=== PATIENT | female | born 1985 | race Caucasian/White ===

== ENCOUNTER → 2017-11-11 | Outpatient (CLI) | payer OTHER ==
[~2017-11-11] MED LIST: ESCI10TA17 PO; PRENTAB26 PO
== END | disposition home or self-care (01) ==
LOC: C.LABSPEC 17:30
PROVIDERS: ATTEND Obstetrics & Gynecology
DX: N76.0 Acute vaginitis (principal)

== ENCOUNTER → 2017-12-06 | Outpatient (CLI) | payer OTHER | END | disposition home or self-care (01) | LOC: C.PAPS 11:16 | PROVIDERS: ATTEND Obstetrics & Gynecology | DX: Z01.419 Encounter for gynecological examination (general) (routine) without abnormal findings (principal) ==

== ENCOUNTER 2023-04-11 03:30 | Inpatient (IN) ==
[2023-04-11] MEDS ORDERED: OXYTOCIN 30 UNITS/500 ML BAG IV PRN ×2 (03:57→05:28)
[2023-04-11] MEDS ORDERED: LIDOCAINE 1% LOCAL 20 ML VIAL INFIL PRN (03:57)
[2023-04-11] MEDS ORDERED: LACTATED RINGER'S 1,000 ML IV PRN (03:57)
--- NOTE | 2023-04-11 04:21 | History & Physical Report ---
Date of Service April 11, 2023 Assessment & Plan (1) GDM (gestational diabetes mellitus): (2) Supervision of elderly multigravida: (3) with 39 completed weeks gestation: Plan Patient presents in active labor. Being treated as GDM because declined to test. Last us shows efw 88&, AC 97%. Hx of shoulder dystocia with last delivery 7 years ago. fetus is category one. anticipate . Will be vigilent for dystocia. Desires unmedicated labor. arom if desires/indicated. Admission and Anticipated Discharge Date Admission Date: April 11, 2023 History of Present Illness Chief Complaint: contractions Primary Care Provider: Les Webb MD Patient is a 38yowf with iup at39 11/24 who calls complaining of pressure and contractions. Presented to labor and delivery and found to be in active labor. complicated by GDM. US 04/02 shows AC 97%, efw 88%. Last delivery was complicated by a should dystocia for a 8#5oz baby. That baby had spina bifida. and Delivery Plans AMA *Weekly NST's @ 36wks G2 shoulder dystocia G1 mild open spina bifida GDM-Declines GTT *Dietary referral *Growth US monthly IOL 04/16/23 OB Labs: Blood Type O Positive 09/09/22 Antibody Screen NEGATIVE 09/09/22 Hemoglobin 11.6 g/dl (12.0-16.0) L 01/21/23 Hematocrit 33.0 % (37.0-47.0) L 01/21/23 Mean Corpuscular Volume 89.9 fL (80.0-100.0) 09/09/22 Platelet Count 302 K/uL (130-400) 09/09/22 Rubella IgG Antibody Immune (Immune) 09/09/22 Rapid Plasma Reagin Nonreactive (Nonreactive) 09/09/22 Hepatitis B Surface Antigen. NON-REACTIVE (NON-REACTIVE) 09/09/22 Hepatitis C Antibody (EIA) NON-REACTIVE (NON-REACTIVE) 09/09/22 HIV (1&2) Ag and Ab Confirmation NON-REACTIVE (NON-REACTIVE) 09/09/22 Glucose 1 Hour 50 gm Load 97 mg/dl (70-130) 10/29/22 Maternal Serum Alpha Fetoprotein 36.2 ng/mL 10/29/22 OB Optional Labs: Chlamydia trachomatis RNA Not Detected (NotDetected) 09/09/22 Neisseria gonorrhoeae RNA Not Detected (NotDetected) 09/09/22 Thyroid Stimulating Hormone (TSH) 2.05 mIU/L 08/25/21 Alpha Fetoprotein Triple Screen SEE NOTE 10/29/22 low risk panorama neg afp gbs neg Allergies Allergy/AdvReac Type Severity Reaction Status Date / Time peanut Allergy Intermediate Hives Verified 04/08/23 10:40 terbinafine Allergy Intermediate HIVES Verified 04/08/23 10:40 monosodium glutamate Allergy Mild GI SYMPTOMS Verified 04/08/23 10:40 nut - unspecified Allergy Mild GI SYMPTOMS Verified 04/08/23 10:40 Egg Derived Allergy Unknown GI SYMPTOMS Verified 04/08/23 10:40 Home Medications Medication Instructions Recorded Confirmed Type prenat.vits,ac,lsc-vjpe-ehwaa 1 tab PO DAILY 12/12/20 04/11/23 History Lactobacillus 1 cap PO DAILY 04/15/21 04/11/23 History acidophilus-Bifidobac.animalis 31 billion cell capsule triamcinolone acetonide 0.025 % 1 applic topical DAILY PRN Itching 04/15/21 04/11/23 History topical cream #1 g bupropion HCl 100 mg tablet 150 mg PO DAILY 04/30/21 04/11/23 History magnesium oxide 400 mg PO DAILY 08/27/21 04/11/23 History fluoxetine 10 mg capsule 5 mg PO DAILY 12/08/21 04/11/23 History levalbuterol tartrate 45 2 inh inhalation Q6H #15 grams 12/25/21 04/11/23 Rx mcg/actuation aerosol inhaler pyridoxine (vitamin B6) 25 mg 25 mg PO BID 09/04/22 04/11/23 History tablet fluticasone 250 mcg-salmeterol 50 1 inh inhalation BID PRN Allergic 11/23/22 04/11/23 History mcg/dose blistr powdr for Symptoms inhalation (Advair Diskus) acetone (urine) test (Ketone Urine #50 ea 02/05/23 04/08/23 Rx Test strips) blood sugar diagnostic (OneTouch #150 ea 02/05/23 04/08/23 Rx Verio test strips) blood-glucose meter (OneTouch #1 ea 02/05/23 04/08/23 Rx Verio Reflect Meter) lancets 33 gauge (OneTouch Delica #150 ea 02/05/23 04/08/23 Rx Lancets) omega-3 fatty acids 1,000 mg PO DAILY 04/11/23 04/11/23 History vitamin B complex 1 tab PO DAILY 04/11/23 04/11/23 History Patient History Medical History Asthma COVID-19 Irritability Missed Raynauds phenomenon Surgical History S/P tonsillectomy S/P tooth extraction Family History Mother Thyroid disorder Brother Congenital deafness Grandmother (Maternal) Colon cancer Denies family history of Ovarian cancer Breast cancer Social History Smoking Status: Never smoker Second Hand Exposure: No; Do You Dip or Chew Tobacco: No; Hx Alcohol Use: No Hx Substance Use: No Preferred Language: Italian Communication Ability: Effective Visual Impairment: No Limitations Hearing Ability: Normal Parking Lot Attendant And Cashier Required: No Beliefs That Will Affect Care: None marital status: marital status details: Omar (41) [phone] Current Living Situation: Spouse and Family Current Living Situation Comment: lives with spouse and children, no pets current occupational status: other 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 Date GA wks Lbr Lgth wt Sex Type del Anes Place Del Prov ? Comment 01/13/13 5 Aborted-Spontaneous 10/12/13 38 5lb 10oz M None [facility] Dr. Milena Desouza IUGR 06/03/15 40 8lb 5oz. F None [facility] Dr. Alec Desouza Shoulder dystocia, mild spina bifida Physical Exam Constitutional: WD/WN, vitals as above Psychiatric: A+Ox3, euthymic affect Genitourinary: cx--7-8 with a bulging bag toco--q2-4 min efm--130s wtih mod variability, accels present, no decels Results & Data Vital Signs (Past 12 Hours) Vital Signs Temp Pulse Resp BP 04/11/23 04:07 87 147/72 H 04/11/23 04:01 36.5 C 87 18 147/72 H Coding Level of Care Code None Diagnoses GDM (gestational diabetes mellitus) O24.419 Supervision of elderly multigravida O09.529 with 39 completed weeks gestation Z3A.39
[2023-04-11 04:36] LABS: Hemoglobin 12.7 g/dl (12.0-16.0); Mean Corpuscular Hemoglobin 31.4 pg (25.0-34.0); Mean Corpuscular Hgb Conc 35.3 g/dL (32.0-36.0); Mean Corpuscular Volume 88.9 fL (80.0-100.0); Mean Platelet Volume 9.8 fL (9.4-12.4); Platelet Count 241 K/uL (130-400); RDW Coefficient of Variation 13.1 % (11.5-14.5); RDW Standard Deviation 42.7 fL (36.4-46.3); Red Blood Count 4.05 M/uL (4.20-5.40); White Blood Count 8.57 K/ul (4.8-10.8)
[2023-04-11] MEDS ORDERED: DIPHTHERIA/TETANUS/PERTUSSIS Vaccine (Tdap, Age 7+yrs) 0.5mL SYR/VL IM ONE (05:28)
[2023-04-11] MEDS ORDERED: ACETAMINOPHEN 325 MG TAB PO PRN (05:28)
[2023-04-11] MEDS ORDERED: HYDROCORTISONE ACETATE 25 MG SUPP PR PRN (05:28)
[2023-04-11] MEDS ORDERED: BENZOCAINE 20% SPRY 85 APPLN/85 GM CAN EXT PRN (05:28)
[2023-04-11] MEDS ORDERED: oxyCODONE/ACETAMINOPHEN 5mg/325mg TAB PO PRN (05:28)
--- NOTE | 2023-04-11 05:33 | Delivery Summary ---
Vaginal Delivery Summary Date of Service April 11, 2023 Vaginal Delivery Summary and 1st Degree LAC Pre-operative Diagnosis: at 39 weeks active labor arom gdm Post-operative Diagnosis: same Procedure: first degree laceration and repair EBL: 300cc Anesthesia: epidural Procedure: The patient presented to labor and delivery in active labor at 7- 8cm. She was admitted and then shortly underwent arom for clear fluid. The patient pushed for one contraction to deliver a viable male infant in maya position. The anterior shoulder was easily delivered and the rest of the was then delivered without difficulty. The baby was vigorous. The nose and mouth were bulb suctioned and the infant was placed in the maternal abdomen for drying and attention. Cord was clamped and cut at about one minute of life. Cord blood and segment obtained. Placenta delivered spontaneous, intact with a three vessel cord. Cervix/sulci/rectum were intact. A first degree perineal laceration was repaired in the normal standard fashion. Hemostasis obtained with dilute pitocin and fundal massage. Apgars were 8/9. Mother and baby doing well at the end of the delivery[place] [facility] [place] Delivery Type Details: and 1st Degree LAC
[2023-04-11] MEDS: IBUPROFEN 600 MG TAB PO PRN ×4 (07:46→21:43)
[2023-04-11] MEDS: PRENATAL VITAMIN 1 TAB PO SCH (09:35)
[2023-04-11] MEDS: DOCUSATE SODIUM 100 MG CAP PO SCH ×2 (09:35→21:43)
[2023-04-11] MEDS ORDERED: buPROPion HCl 75 MG TABLET PO SCH (11:15)
[2023-04-11] MEDS ORDERED: FLUoxetine HCL 10 MG CAP PO SCH (11:15)
[2023-04-11] MEDS: LANSOPRAZOLE 15 MG SOLTAB PO SCH (21:52)
[2023-04-12] MEDS: IBUPROFEN 600 MG TAB PO PRN (02:30)
--- NOTE | 2023-04-12 06:37 | Obstetrical Progress Note ---
Date of Service April 12, 2023 Assessment & Plan (1) Spontaneous vaginal delivery: Patient with the above mentioned history and findings was evaluated at bedside and found awake, alert, oriented in all spheres, afebrile, and in no acute distress. Vital signs showed no fever and blood pressures remained stable with the highest measuring 143/73 yesterday without recurrence, and no symptoms of severity (e.g. vision changes, headaches, oliguria, etc.). Her pain intensity is rated as a 5 in a 10-point scale, and is adequately controlled with analgesia. Her blood type is O+ and today's hemoglobin is adequate at 12.7 g/dL. Serologies are negative for GBS and patient is Rubella immune. Overall, patient is doing well clinically. Therefore, will encourage ambulation as tolerated and will resume regular diet. Will continue monitoring pain levels and management with current regimen. Patient is encouraged to breastfeed and to notify changes in normal lochia such as excessive bleeding (using more than 1 pad per hour), foul smell, or purulent appearance. All questions were answered. Lian Snow is a 38 y/o female who is now PPD # 1 following Spontaneous Vaginal Delivery at 39 3/7 weeks gestational age. Reports feeling well overall this morning. Refers mild abdominal cramping & 5/10 pain well managed on analgesics. She is ambulating without difficulty. She is also urinating well and had a bowel movement. Tolerating meals overnight. Some persistent lochia with some improvement this morning. Breast feeding and has been assisted by nursing staff to help her baby latch. Constitutional: no fever, no chills or no sweats Denies changes in vision. Denies shortness of breath or difficulty breathing Cardiovascular: no chest pain or no palpitations Breast: no breast pain Genitourinary (female): no dysuria Neurologic: no headache(s) Physical Exam General: Alert. Oriented to person, time, and place. Afebrile. No acute distress. Eyes: pupils equal and reactive to light bilaterally, extraocular movements intact. Cardiac: Regular rate and rhythm, no murmurs/rubs/gallops. Respiratory: Clear to auscultation bilaterally a/p, no wheezes/rales/rhonchi. No increased work of breathing. Symmetrical chest rise. No respiratory distress. Abdomen: Soft, nontender, nondistended. Bowel sounds present. Uterus: Uterine fundus firm, palpable 1 cm below umbilicus. Lower Extremities: No lower extremity edema or swelling. No deep calf pain. Eric's negative bilaterally. Psych: Euthymic affect. Mood and affect congruence. Regular speech rate and content. Results & Data Vital Signs (Past 12 Hours) Vital Signs Temp Pulse Resp BP Pulse Ox O2 Del Method 04/12/23 03:30 36.5 C 88 18 110/70 97 Room Air 04/11/23 23:21 36.7 C 90 18 112/74 96 Room Air 04/11/23 20:05 36.6 C 92 H 18 128/81 100 Room Air Resident Activity Tracking Resident Involvement: Resident Care Provided Care Provided: OB Delivery
[2023-04-12 06:55] LABS: Hematocrit (blood only) 32.9 % (37.0-47.0)
--- NOTE | 2023-04-12 07:55 | Obstetrical Progress Note ---
Date of Service April 12, 2023 Assessment & Plan (1) Encounter for assessment: Plan Doing well. Routine care. Wants to stay until tomorrow. Will verify her meds with pharmacy and order today--wellbutrin, fluoxetine. Day #:: 1 Subjective Ambulation: ambulating normally Voiding: no voiding problems Passing Gas:: Yes Diet Tolerance:: regular diet Lochia:: Small Feeding Type:: breast feeding Physical Exam Constitutional WD/WN, vitals as above Cardiovascular Extremities: + edema (tr); no calf tenderness Gastrointestinal (Abdomen) soft, nt, nd, ff/nt at u Psychiatric A+Ox3, euthymic affect Results & Data Vital Signs (Past 12 Hours) Vital Signs Temp Pulse Resp BP Pulse Ox O2 Del Method 04/12/23 03:30 36.5 C 88 18 110/70 97 Room Air 04/11/23 23:21 36.7 C 90 18 112/74 96 Room Air 04/11/23 20:05 36.6 C 92 H 18 128/81 100 Room Air
[2023-04-12] MEDS: PRENATAL VITAMIN 1 TAB PO SCH (08:40)
[2023-04-12] MEDS: DOCUSATE SODIUM 100 MG CAP PO SCH ×2 (08:40→21:03)
[2023-04-12] MEDS ORDERED: buPROPion XL 150 MG TABCR PO SCH (12:15)
[2023-04-12] MEDS ORDERED: FLUoxetine HCL 20 MG/5 ML 120ML BTL PO SCH (12:15)
[2023-04-12] MEDS: BUPROPION HCL 150 MG PO SCH (17:51)
[2023-04-12] MEDS: FLUOXETINE HCL 10 MG PO SCH (17:51)
[2023-04-12] MEDS ORDERED: bisacodyL 5 MG TABEC PO SCH (20:00)
[2023-04-12] MEDS: LANSOPRAZOLE 15 MG SOLTAB PO SCH (21:03)
--- NOTE | 2023-04-13 05:17 | Obstetrical Progress Note ---
Date of Service <Milla Almendarez MD - Last Filed: 04/13/23 07:42> April 13, 2023 Assessment & Plan <Milla Almendarez MD - Last Filed: 04/13/23 07:42> (1) Spontaneous vaginal delivery: Patient with the above mentioned history and findings was evaluated at bedside and found awake, alert, oriented in all spheres, afebrile, and in no acute distress. Vital signs showed no fever and blood pressures remained stable and without symptoms of severity (e.g. vision changes, headaches, oliguria, etc.). Her pain intensity is rated as a 0 in a 10-point scale without the use of analgesics. Her blood type is O positive and today's hemoglobin is adequate at 11 g/dL. Serologies are negative for GBS and patient is Rubella immune. She was meant to be discharged yesterday, but preferred to stay one more day. Overall, patient is doing well clinically. Therefore, will encourage ambulation as tolerated and will resume regular diet. Will continue monitoring pain levels and management with Motrin PRN. Patient is encouraged to breastfeed and to notify changes in normal lochia such as excessive bleeding (using more than 1 pad per hour), foul smell, or purulent appearance. Patient was counselled on discharge instructions. She is to make an appointment with her OB for 6 weeks after discharge for follow up evaluation. All questions were answered. <Ania Browning MD - Last Filed: 04/13/23 07:53> (1) Spontaneous vaginal delivery: Subjective <Milla Almendarez MD - Last Filed: 04/13/23 07:42> Gwendolyn is a 38 y/o female who is now PPD # 2 following at 39 3/7 weeks . Reports feeling well overall this morning.Refers improved abdominal cramping & 0/10 pain without the use of analgesics. Voiding well and without difficulty. Tolerating meals overnight and able to ambulate some. She is passing gas and has had bowel movements. Some persistent lochia with marked improvement this morning. Breast feeding. Constitutional: no fever, no chills or no sweats Denies vision changes. Denies shortness of breath or difficulty breathing Cardiovascular: no chest pain or no palpitations Breast: no breast pain Genitourinary (female): no dysuria Neurologic: no headache(s) Physical Exam <Milla Almendarez MD - Last Filed: 04/13/23 07:42> General: Alert. Oriented to person, time, and place. Afebrile. No acute distress. Eyes: pupils equal and reactive to light bilaterally, extraocular movements intact. Cardiac: Regular rate and rhythm, no murmurs/rubs/gallops. Respiratory: Clear to auscultation bilaterally a/p, no wheezes/rales/rhonchi. No increased work of breathing. Symmetrical chest rise. No respiratory distress. Abdomen: Soft, nontender, nondistended. Bowel sounds present. Uterus: Uterine fundus firm, non-tender, and palpable 3 cm below umbilicus. Lower Extremities: No lower extremity edema or swelling. No deep calf pain. Eric's negative bilaterally. Psych: Euthymic affect. Mood and affect congruence. Regular speech rate and c ontent. Results & Data <Milla Almendarez MD - Last Filed: 04/13/23 07:42> Vital Signs (Past 12 Hours) Vital Signs Temp Pulse Resp BP Pulse Ox O2 Del Method 04/12/23 23:45 36.9 C 91 H 18 110/68 96 Room Air 04/12/23 21:20 36.5 C 81 18 122/77 97 Room Air <Ania Browning MD - Last Filed: 04/13/23 07:53> Co-Signing Physician Notes Resident Physician Supervision Note: I interviewed and examined the patient. Discussed with Dr. Almendarez and agree with findings and plan as documented in the note. Any exceptions or clarifications are listed here: PP2 s/p , doing well. VSS, exam benign and wnl. For d/c home today Documented By: Ania Browning MD Resident Activity Tracking <Milla Almendarez MD - Last Filed: 04/13/23 07:42> Resident Involvement: Resident Care Provided Care Provided: OB Delivery
[2023-04-13] MEDS ORDERED: bisacodyL 10 MG SUPP PR PRN (05:28)
[2023-04-13] MEDS: PRENATAL VITAMIN 1 TAB PO SCH (08:30)
[2023-04-13] MEDS: DOCUSATE SODIUM 100 MG CAP PO SCH (08:30)
[2023-04-13] MEDS: FLUOXETINE HCL 10 MG PO SCH (08:31)
[2023-04-13] MEDS: BUPROPION HCL 150 MG PO SCH (08:32)
[2023-04-13] MEDS ORDERED: buPROPion SR 150 MG TABCR PO SCH (09:00)
== END 2023-04-13 11:50 | disposition home or self-care (01) | DRG 807 ==
LOC: OPB 03:30 → 4S1 03:31 → 4E2 09:30